=== PATIENT | male | born 1975 | race Caucasian/White ===

== ENCOUNTER 2023-10-27 23:32 | Emergency (ER) | payer BC, SELFPAY ==
[~2023-10-27] VITALS: Ht 188 cm; Wt 102.3 kg
[2023-10-28] MEDS ORDERED: LIDOCAINE 2% MDV 20ML VIAL As Ordered ONE (04:01)
[2023-10-28] MEDS: LIDOCAINE 2% MDV 20ML VIAL SC ONE (04:21)
[2023-10-28] MEDS ORDERED: CEPH500C PO (04:32)
[2023-10-28] MEDS: CEPHALEXIN 500 MG CAP PO ONE (04:39)
[2023-10-28] MEDS: BOOSTRIX VACCINE (TETANUS/DIPHTH/ACEL. PERTUSSIS) 0.5ML SYR IM.IMMUN ONE (04:40)
[2023-10-28 04:45] VITALS: BP 145/84; TEMP 97; O2SAT 95
== END 2023-10-28 04:51 | disposition home or self-care (01) ==
LOC: M ED 23:32
DX: S81.812A Laceration without foreign body, left lower leg, initial encounter (principal); W19.XXXA Unspecified fall, initial encounter; Y92.410 Unspecified street and highway as the place of occurrence of the external cause; Y93.9 Activity, unspecified; Y99.9 Unspecified external cause status